=== PATIENT | female | born 1960 | race Caucasian/White ===

== ENCOUNTER 2017-05-31 16:13 | Emergency (ER) | payer OTHER ==
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
[2017-05-31] MEDS ORDERED: FLEXERIL PO ONE (20:31)
[2017-05-31] MEDS ORDERED: NORCO 5/325 PO ONE (20:31)
[2017-05-31 21:08] VITALS: BP 128/71
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
== END 2017-05-31 21:09 | disposition home or self-care (01) ==
LOC: ED 16:13
DX: M51.37 Other intervertebral disc degeneration, lumbosacral region (principal); M25.512 Pain in left shoulder; M54.16 Radiculopathy, lumbar region; I10 Essential (primary) hypertension; I50.9 Heart failure, unspecified; Z79.82 Long term (current) use of aspirin; V49.49XA Driver injured in collision with other motor vehicles in traffic accident, initial encounter; Y92.488 Other paved roadways as the place of occurrence of the external cause; Y93.89 Activity, other specified; Y99.8 Other external cause status
CPT/HCPCS: 72100; 99283